=== PATIENT | female | born 1975 | race Caucasian/White ===

== ENCOUNTER 2017-02-13 08:48 | Observation (INO) | payer OTHER ==
[~2017-02-13] VITALS: Ht 152.4 cm; Wt 75.7 kg
[2017-02-13] MEDS ORDERED: PREN1TAB80 PO (09:00)
[2017-02-13 09:18] VITALS: BP 118/67
== END 2017-02-13 09:35 | disposition home or self-care (01) ==
LOC: 4S 08:48
PROVIDERS: ADMIT Obstetrics & Gynecology; ATTEND Obstetrics & Gynecology
DX: O09.523 Supervision of elderly multigravida, third trimester (principal); Z3A.34 34 weeks gestation of pregnancy
CPT/HCPCS: 59025; G0378

== ENCOUNTER 2017-02-17 08:45 | Observation (INO) | payer OTHER ==
[~2017-02-17] VITALS: Ht 154.9 cm; Wt 75.3 kg
[~2017-02-17 08:45] MED LIST: PREN1TAB80 PO
[2017-02-17 09:00] VITALS: BP 109/68
== END 2017-02-17 11:00 | disposition home or self-care (01) ==
LOC: 4S 08:45 → UNDOADMOB 08:50
PROVIDERS: ADMIT Obstetrics & Gynecology; ATTEND Obstetrics & Gynecology
DX: O09.523 Supervision of elderly multigravida, third trimester (principal); Z3A.35 35 weeks gestation of pregnancy
CPT/HCPCS: 59025; G0378

== ENCOUNTER 2017-02-20 09:00 | Observation (INO) | payer OTHER ==
[~2017-02-20] VITALS: Ht 157.5 cm; Wt 75.3 kg
[2017-02-20 09:45] VITALS: BP 120/73
== END 2017-02-20 09:30 | disposition home or self-care (01) ==
LOC: 4S 09:00
PROVIDERS: ADMIT Obstetrics & Gynecology; ATTEND Obstetrics & Gynecology
DX: O09.523 Supervision of elderly multigravida, third trimester (principal); Z3A.35 35 weeks gestation of pregnancy
CPT/HCPCS: 59025; G0378

== ENCOUNTER 2017-02-24 08:45 | Observation (INO) | payer OTHER ==
[~2017-02-24] VITALS: Ht 154.9 cm; Wt 75.7 kg
== END 2017-02-24 11:15 | disposition home or self-care (01) ==
LOC: 4S 08:45
PROVIDERS: ADMIT Obstetrics & Gynecology; ATTEND Obstetrics & Gynecology
DX: O09.523 Supervision of elderly multigravida, third trimester (principal); Z3A.36 36 weeks gestation of pregnancy
CPT/HCPCS: 59025; G0378

== ENCOUNTER 2017-02-27 10:15 | Observation (INO) | payer OTHER ==
[~2017-02-27] VITALS: Ht 157.5 cm; Wt 76.2 kg
[2017-02-27 10:55] VITALS: BP 123/67
== END 2017-02-27 11:40 | disposition home or self-care (01) ==
LOC: 4S 10:15
PROVIDERS: ADMIT Obstetrics & Gynecology; ATTEND Obstetrics & Gynecology
DX: O36.8130 Decreased fetal movements, third trimester, not applicable or unspecified (principal); O62.9 Abnormality of forces of labor, unspecified; Z3A.36 36 weeks gestation of pregnancy
CPT/HCPCS: 59025; G0378